=== PATIENT | female | born 1945 | race Caucasian/White ===

== ENCOUNTER 2018-04-30 09:14 | Outpatient (RCR) | payer MEDICARE, BC ==
--- NOTE | 2018-04-06 08:39 | NUR ---
04/03/18 Patient in today for Treatment team review. Pt presents clean and neat, alert and oriented x 4. Pt is in a bright mood. Pt states she is doing much better and that she is only drinking 2 drinks a day. 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 Pt denies any suicidal thoughts at this time. Pt will continue with IOP 4x/week. Pt is also currently in 1:1 weekly. Will follow up in one month. Treatment team concluded.
[~2018-04-30 09:14] MED LIST: ACAMPROSATE CA333 MG PO; ADULT ASPIRIN E81 MG PO; ARIPIPRAZOLE5 MG PO; B-12500 MC1 PO; CARVEDILOL3.125 MG PO; CARVEDILOL6.25 MG PO; CEFDINIR300 MG PO; CLOPIDOGREL75 MG PO; CYMBALTA30 MG PO; CYMBALTA60 MG PO; FOLIC ACID400 MC1 PO; GABAPENTIN100 MG PO; GLIPIZIDE ER2.5 MG PO; LEVEMIR100 UNIT/M IM; LISINOPRIL20 MG PO; LISINOPRIL40 MG PO; METFORMIN500 M2 PO; PEPCID20 MG PO; ROSUVASTATIN CA20 MG PO; SINGULAIR10 MG PO; SPIRONOLACTONE25 MG PO; VESICARE5 M1 PO; VITAMIN B-1100 M2 PO; VITAMIN D31000 UNI1 PO
[2018-05-08] MEDS ORDERED: CARVEDILOL3.125 MG PO (14:34)
[2018-05-08] MEDS ORDERED: LEVEMIR100 UNIT/M (14:35)
== END 2018-04-30 23:59 | disposition still patient (30) ==
LOC: PATHWAYS 09:14
PROVIDERS: ATTEND Specialist
DX: F10.20 Alcohol dependence, uncomplicated (principal); F10.10 Alcohol abuse, uncomplicated; F41.1 Generalized anxiety disorder; F33.8 Other recurrent depressive disorders